=== PATIENT | female | born 2005 | race Caucasian/White ===

== ENCOUNTER 2024-07-12 02:52 | Emergency (ER) | payer OTHER, SELFPAY ==
[2024-07-12 03:05] VITALS: BP 137/92; PULSE 110; RESP 16; TEMP 36.6; O2SAT 100
[2024-07-12 03:27] LABS: Bilirubin Negative (Negative); Blood Moderate (Negative); Clarity Sl Cloudy (Clear); Glucose Negative (Negative); Ketones Negative (Negative); Leukocyte Esterase Small (Negative); Nitrite Positive (Negative); Specific Gravity >= 1.030 (1.005-1.025); Urobilinogen 0.2 mg/dL (Up to 0.2); pH 5.5 (5-8)
[2024-07-12 03:31] LABS: Bacteria Few HPF (Negative); C & S Indicated? No/Sq. Contamination; Casts Negative LPF (Negative); Crystals Negative HPF (Negative); Epithelial Cells Moderate HPF (Negative); Mucus Negative (Negative); WBC >50 HPF (0-5)
--- NOTE | 2024-07-12 03:37 | W.ED.GENAD ---
Discharge Plan Disposition Patient Disposition: Home Condition: Good Discharge Details Clinical Impression: Pyelonephritis Primary Care Provider: Unknown,Unknown ED Provider: Claribel Rodriguez Home Meds and New Rx's Prescriptions: New ciprofloxacin HCl 500 mg tablet 500 mg PO BID Qty: 13 0RF Discharge Instructions Instructions: Urinary Tract Infection, Adult ED Additional Instructions: Antibiotic twice a day for the next 7 days. Call your primary care doctor on Sunday to schedule an appointment for within the following 2 days to follow up on your visit here. Return to the emergency department for new or worsening symptoms including fever, new/different/worse pain, inability to keep down fluids, or if you have any other concerns. HPI General Mode of arrival: ambulatory. Date/Time Provider Initiated Documentation: 07/12/24 03:16. Limitations to Documentation: no limitations. Information obtained by: patient. HPI Narrative: 19yo previously healthy female presenting with abdominal pain and urinary frequency. Symptoms developed over the past two days. Pain is dull, suprapubic, and radiates to her right side. Some nausea today, one episode of scant mucousy emesis. Otherwise tolerating food and fluids well. Normal BM this morning. No dysuria, hematuria, or vaginal discharge. LMP about one week ago, does have unprotected intercourse. No fevers, chills, rash, chest pain, shortness of breath, bloody stool, or other concerns. Related Data Home Medications ?Medication ?Instructions ?Recorded ?Confirmed ciprofloxacin HCl 500 mg tablet 500 mg PO BID #13 tabs 07/12/24 Previous Rx's ?Medication ?Instructions ?Recorded ciprofloxacin HCl 500 mg tablet 500 mg PO BID #13 tabs 07/12/24 Allergies Allergy/AdvReac Type Severity Reaction Status Date / Time latex Allergy Unknown Verified 07/12/24 03:45 General Stated Complaint: Urinary FATUMA: 4 Review of Systems Narrative: see HPI Exam Narrative Exam Narrative: General: Alert, well appearing, well nourished, in no acute distress. Head: Normocephalic, atraumatic Neck: Trachea midline, ?Neck supple. ENT: ?MMM.? No oropharygeal lesions or exudate. Cardiac: ?RRR, no murmurs appreciated Resp: No respiratory distress. CTAB. Abd: ?Soft, non-distended, mild suprapubic and RLQ tenderness to palpation. : ?Mild suprapubic tenderness. No CVA tenderness. Extremities: ?No deformities.? No peripheral edema. Neurologic: GCS 15. ? Moves all extremities freely against gravity Course Vital Signs Vital signs: Vital Signs Temperature 36.6 C 07/12/24 03:05 Pulse 110 H 07/12/24 03:05 Respiratory Rate 16 07/12/24 03:05 Blood Pressure 137/92 H 07/12/24 03:05 Pulse Oximetry 100 07/12/24 03:05 Temperature 36.6 C 07/12/24 03:05 Temperature Source Temporal Artery Scan 07/12/24 03:05 Pulse 110 H 07/12/24 03:05 Respiratory Rate 16 07/12/24 03:05 Respiratory Effort Normal 07/12/24 03:11 Blood Pressure 137/92 H 07/12/24 03:05 Blood Pressure Position Sitting 07/12/24 03:05 Pulse Oximetry 100 07/12/24 03:05 Oxygen Delivery Method Room Air 07/12/24 03:05 Oxygen Flow Rate 0 07/12/24 03:05 Pain Level 9 07/12/24 03:11 Lab/Test Results Lab/Test Results: Laboratory Tests Range/Units 07/12/24 03:20 Urine Color (Yellow) Yellow Urine Clarity (Clear) Sl Cloudy Urine pH (5-8) 5.5 Ur Specific [employer] (1.005-1.025) >= 1.030 H Urine Protein (Neg-Trace) mg/dL 100 H Urine Ketones (Negative) mg/dL Negative Urine Blood (Negative) Moderate H Urine Nitrite (Negative) Positive H Urine Bilirubin (Negative) Negative Urine Urobilinogen (Up to 0.2) mg/dL 0.2 Ur Leukocyte Esterase (Negative) Small H Urine RBC (0-2) HPF 5-10 H Urine WBC (0-5) HPF >50 H Ur Epithelial Cells (Negative) HPF Moderate Urine Crystals (Negative) HPF Negative Urine Bacteria (Negative) HPF Few Urine Casts (Negative) LPF Negative Urine Mucus (Negative) Negative Ur Culture Indicated? No/Sq. Contamination Urine Glucose (Negative) mg/dL Negative POC- Test(urine) Negative Medical Decision Making 19yo previously healthy female presenting with lower abdominal pain and urinary frequency for the past two days, today with associated nausea and one episode of vomiting. . Tachycardiac on arrival to 110 after ambulating into triage, vital signs otherwise reassuring. Mild suprapubic and RLQ tenderness on exam with no rebound or guarding. Not overtly septic, would not treat empirically with abx/fluids. Given tylenol & ibuprofen for pain. -Initial UA contaminated, repeat sent and is consistent with UTI. -Labs reviewed as below, CBC reassuring with no leukocytosis or anemia, CMP with no actionable abnormalities. Amin score 3, unlikely appendicitis; would not pursue CT imaging at this time. Repeat HR in low 90's without further intervention. On reassessment patient reports pain improved, abdominal exam with minimal suprapubic tenderness and no RLQ tenderness. Not suggestive of ovarain cyst/torsion/tuboovarian abscess; discussed with patient and will not do pelvic exam or get US at this time. With generalized malaise and some vomiting, will treat as pyelonephritits with 7 day course of cipro. 1st dose given in the ED. PO challenged and tolerated well. Discharged home; discharge instructions and return precuations were reviewed with patient who verbalized understanding. All questions were answered and she is in full agreement with the plan. Lab Data Lab results reviewed: Yes I reviewed the patient's lab results. Labs: 07/12/24 04:00 Urine - Reflex from Ua Urine Culture - Pending Laboratory Tests Range/Units 07/12/24 07/12/24 07/12/24 03:20 03:53 04:00 WBC (4.4-10.8) 10^3/uL 10.32 RBC (3.93-5.22) 10^6/uL 5.08 Hgb (11.2-15.7) g/dL 12.6 Hct (36.0-46.0) % 39.4 MCV (80-95) fL 78 L MCH (27.0-33.0) pg 24.8 L MCHC (32.0-36.0) % 32.0 RDW (11.7-14.6) % 14.4 Plt Count (130-400) 10^3/uL 320 MPV (8.0-11.0) fL 9.6 Immature Gran % % 0.3 Neutrophils % % 70.2 Lymphocytes % % 16.9 Monocytes % % 11.6 Eosinophils % % 0.7 Basophils % % 0.3 Nucleated RBC % (0.0-0.3) % 0.0 Absolute Neutrophils (1.2-6.7) 10^3/uL 7.25 H Absolute Lymphocytes (1.2-3.4) 10^3/uL 1.74 Absolute Monocytes (0.1-0.8) 10^3/uL 1.20 H Absolute Eosinophils (0.0-0.7) 10^3/uL 0.07 Absolute Basophils (0.0-0.2) 10^3/uL 0.03 Sodium (136-145) mmol/L 142 Potassium (3.5-5.1) mmol/L 3.5 Chloride (98-107) mmol/L 103 Carbon Dioxide (21.0-32.0) mmol/L 30.6 Anion Gap (3-11) mmol/L 8.4 BUN (7-18) mg/dL 13 Creatinine (0.55-1.02) mg/dL 1.0 Est GFR (CKD-EPI 2020) (mL/min/1.73m2) 82.20 Glucose (74-106) mg/dL 116 H Calcium (8.5-10.1) mg/dL 9.2 Total Bilirubin (0.2-1.0) mg/dL 0.35 AST (15-37) U/L 12 L ALT (14-59) U/L 17 Alkaline Phosphatase (46-116) U/L 97 Total Protein (6.4-8.2) g/dL 7.9 Albumin (3.4-5.0) g/dL 4.2 Urine Color (Yellow) Yellow Yellow Urine Clarity (Clear) Sl Cloudy Clear Urine pH (5-8) 5.5 5.5 Ur Specific [employer] (1.005-1.025) >= 1.030 H 1.010 Urine Protein (Neg-Trace) mg/dL 100 H 30 H Urine Ketones (Negative) mg/dL Negative Negative Urine Blood (Negative) Moderate H Moderate H Urine Nitrite (Negative) Positive H Negative Urine Bilirubin (Negative) Negative Negative Urine Urobilinogen (Up to 0.2) mg/dL 0.2 0.2 Ur Leukocyte Esterase (Negative) Small H Small H Urine RBC (0-2) HPF 5-10 H 5-10 H Urine WBC (0-5) HPF >50 H 10-20 H Ur Epithelial Cells (Negative) HPF Moderate Rare Urine Crystals (Negative) HPF Negative Negative Urine Bacteria (Negative) HPF Few Few Urine Casts (Negative) LPF Negative Negative Urine Mucus (Negative) Negative Negative Ur Culture Indicated? No/Sq. Contamination Yes Urine Glucose (Negative) mg/dL Negative Negative Quality:SDOH Health Related Social Needs: No Data to Display PFSH All Active Problems (Updated 07/12/24 @ 04:53 by Claribel Rodriguez MD) Pyelonephritis (Acute) Social History Smoking/Tobacco Use Status: Current every day Tobacco Type: e-cigarettes Smoking risk assessment performed?: Yes Alcohol Intake: current Alcohol Intake frequency: a few times a week Alcohol type: beer, wine and hard liquor Drug use: Never PAWSS Have you Been Recently Intoxicated or Drunk Within the Last 30 days?: Yes Have you Ever Experienced Previous Episodes of Alcohol Withdrawal?: No Have you ever Experienced Withdrawal Seizures?: No Have you ever Experienced Delirium Tremens(DT)s?: No Have you ever undergone Alcohol Rehabilitation Treatment (i.e, inpt ot outpatient treatment programs)?: No Have you ever Experienced Blackouts?: No Have you ever Combined Alcohol with other Downers within the last 90 days?: No Have you ever Combined Alcohol with any other Substance of Abuse during the last 90 days?: No Positive Blood Alcohol level on Presentation? [PCS.BAL]: Unable to Obtain Evidence of Increased Autonomic Activity (i.e. HR>120, tremor, sweating, agitation, nausea)?: No Result: 1
[2024-07-12 03:45] VITALS: PULSE 98
[2024-07-12] MEDS: Acetaminophen 500 MG TAB 1000 MG PO (03:46)
[2024-07-12] MEDS: Ibuprofen 600 MG TAB PO (03:46)
[2024-07-12 03:58] LABS: Abs Immature Grans 0.03 10^3/uL (0.0-0.06); Absolute Basophil Count 0.03 10^3/uL (0.0-0.2); Absolute Eosinophil Count 0.07 10^3/uL (0.0-0.7); Absolute Lymphocyte Count 1.74 10^3/uL (1.2-3.4); Absolute Neutrophil Count 7.25 10^3/uL (1.2-6.7); Basophils % 0.3 %; Eosinophils % 0.7 %; HCT 39.4 % (36.0-46.0); HGB 12.6 g/dL (11.2-15.7); Immature Grans % 0.3 %; Lymphocytes % 16.9 %; MCH 24.8 pg (27.0-33.0); MCV 78 fL (80-95); MPV 9.6 fL (8.0-11.0); Monocytes % 11.6 %; Neutrophils % 70.2 %; Platelet Count 320 10^3/uL (130-400); RBC 5.08 10^6/uL (3.93-5.22); RDW 14.4 % (11.7-14.6); RDW-SD 40.1 fL; WBC 10.32 10^3/uL (4.4-10.8)
[2024-07-12 04:12] LABS: ALT 17 U/L (14-59); AST 12 U/L (15-37); Albumin 4.2 g/dL (3.4-5.0); Alkaline Phosphatase 97 U/L (46-116); Anion Gap 8.4 mmol/L (3-11); BUN 13 mg/dL (7-18); Bilirubin, Total 0.35 mg/dL (0.2-1.0); CO2 30.6 mmol/L (21.0-32.0); Calcium 9.2 mg/dL (8.5-10.1); Chloride 103 mmol/L (98-107); Glucose 116 mg/dL (74-106); Potassium 3.5 mmol/L (3.5-5.1); Sodium 142 mmol/L (136-145); Total Protein 7.9 g/dL (6.4-8.2)
[2024-07-12 04:38] LABS: Bilirubin Negative (Negative); Blood Moderate (Negative); Clarity Clear (Clear); Glucose Negative (Negative); Ketones Negative (Negative); Leukocyte Esterase Small (Negative); Nitrite Negative (Negative); Urobilinogen 0.2 mg/dL (Up to 0.2); pH 5.5 (5-8)
[2024-07-12 04:42] LABS: Bacteria Few HPF (Negative); C & S Indicated? Yes; Casts Negative LPF (Negative); Crystals Negative HPF (Negative); Epithelial Cells Rare HPF (Negative); Mucus Negative (Negative)
[2024-07-12] MEDS: Ciprofloxacin 500 MG TAB PO (05:00)
[2024-07-12 05:02] VITALS: BP 114/74; PULSE 98; RESP 16; TEMP 36.8; O2SAT 100
--- OUTSIDE RECORDS SUMMARY | 2024-07-12 05:16 | XMS_ITS | Encounter Summary ---
Author Organization [facility] Address [address] [place] [address] Care Team Providers Care Photography Instructor Name Role Phone Pcp, No Unavailable Unavailable Encounter Details Date Type Department Care Team (Late st Contact Info) Description 12/11/2023 5:56 PM EDT - 12/11/2023 6:02 PM EDT Emergency [facility] Emergency Department [address] [place] [id number] Discharge Disposition: Home or Self Care Social History Tobacco Use Types Packs/Day Years Used Date Smoking Tobacco: Never Assessed Comments Unknown Sex and Gender Information Value Date Recorded Sex Assigned at Not on file Legal Sex Female 5:53 PM EDT Gender Identity Not on file Sexual Orientation Not on file documented as of this encounter Last Filed Vital Signs Vital Sign Reading Time Taken Comments Blood Pressure - - Pulse - - Temperature - - Respiratory Rate 16 12/11/2023 6:01 PM EDT Oxygen Saturation 99% 12/11/2023 6:01 PM EDT Inhaled Oxygen Concentration 99% 12/11/2023 6 :01 PM EDT Weight - - Height - - Body Mass Index - - documented in this encounter ED Notes * Mara Nielsen RN - 12/11/2023 6:00 PM EDT Pt to ED for suture removal. Pt wound is closed and free of signs of infection. Tech removed 4 sutures. documented in this encounter Plan of Treatment Not on file documented as of this encounter Visit Diagnoses Not on filedocumented in this encounter Care Teams Photography Instructor Relationship Specialty Start Date End Date Pcp, No PCP - Generic [facility] PCP 12/03/23 documented as of this encounter
--- OUTSIDE RECORDS SUMMARY | 2024-07-12 05:16 | XMS_ITS | Encounter Summary ---
Author Organization [facility] Address [address] [place] [id number] Care Team Providers Care Dub Room Engineer Name Role Phone Pcp, No Unavailable Unavailable Reason for Visit * Reason Comments Dog Bite Encounter Details Date Type Department Care Team ([facility] st Contact Info) Description 12/03/2023 7:42 PM EDT - 12/03/2023 8:14 PM EDT Emergency [facility] Emergency Department [address] [place] [phone] Evangelist Moses MD [address] [place] [address] [place] [address] Discharge Disposition: Home or Self Care Social [...] Sign Reading Time Taken Comments Blood Pressure 103/86 12/03/2023 6:40 PM EDT Pulse 116 12/03/2023 6:40 PM EDT Temperature 36.4 ??C (97.5 ??F) 12/03/2023 6:40 PM ED T Respiratory Rate 18 12/03/2023 6:40 PM EDT Oxygen Saturation 100% 12/03/2023 6:40 PM EDT Inhaled Oxygen Concentration 100% 12/03/2023 6 :40 PM EDT Weight - - Height - - Body Mass Index - - documented in this encounter Discharge Instructions * Discharge Instructions* Evangelist Moses MD - 12/03/2023 8:09 PM EDT Return to walk-in clinic or emergency department for suture removal 1 week after placement. Return to the nearest emergency department immediately for new or worsening symptoms such as fevers or increasing redness. Continue antibiotics as previously prescribed (amoxicillin-clavulanate). * Attachments The following attachments cannot be sent through Care Everywhere. * Tdap Vaccine: VIS (Georgian) documented in this encounter ED Notes * Ruthie Saul RN - 12/03/2023 8:13 PM EDT Discharge instructions reviewed, patient denies any questions * Evangelist Moses MD - 12/03/2023 8:10 PM EDT History Chief Complaint Patient presents with Dog Bite Chief Complaint: Need for tetanus booster I saw this patient primarily. I have seen and examined the patient myself and am responsible for the care plan. The history is provided by the patient. This is a 18 y.o. female who presents with need for tetanus update after dog bite to right forearm.Patient states that she was bitten by a bull mastiff 2 days ago on right forearm. Dog belongs to her friend and dogs vaccinations are up-to-date including rabies series. Patient had sutures placed and started on Augmentin. She denies complaints and is feeling well.. No past medical history on file. No past surgical history on file. No family history on file. Review of Systems Constitutional: Negative for chills and fever. Skin: Positive for wound. Negative for color change and rash. Hematological: Negative for adenopathy. Does not bruise/bleed easily. Physical Exam Triage Vitals [12/03/23 1840] Temperature Heart Rate BP Respirations SpO2 36.4 ??C (97.5 ??F) (!) 116 103/86 18 100 % Oximeter Pulse -- Physical Exam Vitals and nursing note reviewed. Constitutional: General: She is not in acute distress. Appearance: She is well-developed. She is not diaphoretic. HENT: Head: Normocephalic and atraumatic. Eyes: Pupils: Pupils are equal, round, and reactive to light. Neck: Trachea: No tracheal deviation. Pulmonary: Effort: Pulmonary effort is normal. No respiratory distress. Musculoskeletal: Cervical back: Normal range of motion and neck supple. Skin: General: Skin is warm and dry. Coloration: Skin is not pale. Findings: No rash. Comments: Right forearm with sutured laceration, approximately 2 cm in length. 3 sutures are intact. There is no surrounding erythema and seems to be healing appropriately. Neurological: Mental Status: She is alert and oriented to person, place, and time. Psychiatric: Behavior: Behavior normal. Thought Content: Thought content normal. Judgment: Judgment normal. Procedures Procedures completed include: None Pertinent Diagnostic study results include: None indicated MDM (ED Course and Disposition) ASSESSMENT and PLAN This is a 18 y.o. female who presents with wound to right forearm from dog bite and need for updated tetanus. Patient does not need rabies series as dog's vaccinations are up-to-date. She is currently on Augmentin prescribed by walk-in clinic. Tdap given, all questions answered to the best of my ability. She will need suture removal here or in the walk-in clinic. Encounter Diagnoses Name Primary? Dog bite of right forearm, initial encounter Need for Tdap vaccination Yes MDM: MDM Section: Refer to note content and Assessment/Plan Additional History Source: The patient ED CRITICAL CARE: Critical Care: No Evangelist Moses MD 12/03/232013 * Ruthie Saul RN - 12/03/2023 8:09 PM EDT Clean dressing applied * Tarik Willams RN - 12/03/2023 6:38 PM EDT Pt arrives ambulatory c/o dog bite Sunday, pt sent from [facility] for a tetanus shot. Dog was UTD on vaccinations. documented in this encounter Plan of Treatment Not on file documented as of this encounter Visit Diagnoses Diagnosis Need for Tdap vaccination- Primary Need for prophylactic vaccination with combined yaagjeqzsq-hwblifg-xibewpxts (DTP) vaccine Dog bite of right forearm, initial encounter documented in this encounter Care Teams Dub Room Engineer Relationship Specialty Start Date End Date Pcp, No PCP - Generic [facility] PCP 12/03/23 documented as of this encounter
--- OUTSIDE RECORDS SUMMARY | 2024-07-12 05:16 | XMS_ITS | Encounter Summary ---
Author Organization [facility] Address [address] [place] [id number] Care Team Providers Care Glass Smoother Name Role Phone Pcp, No Unavailable Unavailable Encounter Details Date Type Department Care Team (Late st Contact Info) Description 03/05/2024 Lab Requisition [facility] [place] [id number] [place] [phone] Sujatha Dillon, MONEY POSITION OFFICER [address] [place], [place] [id number] Social History Tobacco Use Types Packs/Day Years Used Date Smoking Tobacco: Never Assessed Comments Unknown Sex and Gender Information Value Date Recorded Sex Assigned at Not on file Legal Sex Female 5:53 PM EDT Gender Identity Not on file Sexual Orientation Not on file documented as of this encounter Plan of Treatment Not on file documented as of this encounter Procedures Procedure Name Priority Date/Time Associated Diagnosis Comments CBC W/O DIFFERENTIAL Routine 03/05/2024 10:52 AM EDT Encounter for general adult medical examination without abnormal findings HEMOGLOBIN A1C Routine 03/05/2024 10:52 AM EDT Encounter for general adult medical examination without abnormal findings LIPID PANEL Routine 03/05/2024 10:52 AM EDT Encounter for general adult medical examination without abnormal findings TSH Routine 03/05/2024 10:51 AM EDT Encounter for general adult medical examination without abnormal findings COMPREHENSIVE METABOLIC PANEL Routine 03/05/2024 10:51 AM EDT Encounter for general adult medical examination without abnormal findings documented in this encounter Results * (ABNORMAL) LIPID PANEL (03/05/2024 10:52 AM EDT) Cholesterol 182 See comment mg/dL 03/05/2024 6:52 PM EDT [facility] Comment: Fasting and Non-Fasting Desirable: <200 mg/dL Borderline high: 200-239 mg/dL High: > or = 240 mg/dL Triglycerides 56 See comment mg/dL 03/05/2024 6:52 PM EDT [facility] Comment: Flagging of Abnormals is based on fasting value Fasting Normal: <150 mg/dL Borderline high: 150-199 mg/dL High: 200-499 mg/dL Very high: > or = 500 mg/dL Non-Fasting Males: <200 mg/dL Females: <175 mg/dL HDL Cholesterol 68 See comment mg/dL 03/05/2024 6:52 PM EDT [facility] Comment: Fasting and Non-Fasting Males: > or = 40 mg/dL Females: > or = 50 mg/dL LDL Cholesterol Calculation 103(H) 0 - 99 mg/dL 03/05/2024 6:52 PM EDT [facility] Non HDL Cholesterol Calculation 114.0 See comment mg/dL 03/05/2024 6:52 PM EDT [facility] Comment: Fasting and Non-Fasting Desirable: <130 mg/dL Above desirable: 130-159 mg/dL Borderline high: 160-189 mg/dL High: 190-219 mg/dL Very high: > or = 220 mg/dL Blood VENOUS STRUCTURE / Unknown 03/05/2024 10:52 AM EDT 03/05/2024 4:25 PM EDT Narrative [facility] - 03/05/2024 6:52 PM EDT The National Lipid Association and the National Cholesterol Education Program (NCEP) have set the above guidelines for lipids (total cholesterol, triglycerides, HDL cholesterol, LDL cholesterol, and non HDL cholesterol) in adults ages 18 and up. us Sujatha Dillon NP CHEMISTRY ORDERABLES Final Resul t [facility] [address] [place] [address] * (ABNORMAL) CBC W/O DIFFERENTIAL (03/05/2024 10:52 AM EDT) Leukocytes 9.4 3.7 - 12.7 thou/uL 03/05/2024 6:03 PM EDT [facility] Erythrocytes 5.47(H) 3.69 - 5.28 mil/uL 03/05/2024 6:03 PM EDT [facility] Hemoglobin 13.4 10.5 - 14.8 g/dL 03/05/2024 6:03 PM EDT [facility] Hematocrit 43.5 31.8 - 44.3 % 03/05/2024 6:03 PM EDT [facility] Mean Corpuscular Volume 79.5 73.3 - 96.9 fL 03/05/2024 6:03 PM EDT [facility] Mean Corpuscular Hemoglobin 24.5 21.9 - 32.6 pg 03/05/2024 6:03 PM EDT [facility] Mean Corpuscular Hemoglobin Conc 30.8 29.7 - 34.9 g/dL 03/05/2024 6:03 PM EDT [facility] Platelet Count 379 158 - 429 thou/uL 03/05/2024 6:03 PM EDT [facility] Mean Platelet Volume 10.8 9.1 - 12.9 fL 03/05/2024 6:03 PM EDT [facility] Erythrocyte Distribution Width SD 40.8 37.0 - 48.0 fL 03/05/2024 6:03 PM EDT [facility] Erythrocyte Distribution Width CV 14.1 11.5 - 17.6 % 03/05/2024 6:03 PM EDT [facility] Blood VENOUS STRUCTURE / Unknown 03/05/2024 10:52 AM EDT 03/05/2024 4:25 PM EDT us Sujatha Dillon NP HEMATOLOGY ORDERABLES Final Resu lt [place] [id number] [place] [id number] * HEMOGLOBIN A1C (03/05/2024 10:52 AM EDT) Hemoglobin A1C 5.3 4.2 - 5.6 % 03/06/2024 5:27 AM EDT [facility] Average Plasma Glucose 105 82 - 117 mg/dL 03/06/2024 5:27 AM EDT [facility] Blood VENOUS STRUCTURE / Unknown 03/05/2024 10:52 AM EDT 03/05/2024 4:25 PM EDT Narrative [facility] - 03/06/2024 5:27 AM EDT <18 years: Hemoglobin A1c criteria for diagnosing diabetes have not been established for patients who are <18 years of age. > or =18 years: Increased risk for diabetes (prediabetes):??5.7-6.4% Diabetes:??> or =6.5% Falsely low percent A1c may be seen with abnormal hemoglobin variants or shortened erythrocyte survival (such as hemolysis, blood loss and ). us Sujatha Dillon MONEY POSITION OFFICER CHEMISTRY ORDERABLES Final Resul t Performing Organization Address City/[facility] Co de Phone Number [address] [address] * TSH (03/05/2024 10:51 AM EDT) Pathologist [facility] TSH 2.200 0.270 - 4.200 uIU/mL 03/05/2024 6:42 PM EDT [facility] Blood VENOUS STRUCTURE / Unknown 03/05/2024 10:51 AM EDT 03/05/2024 4:25 PM EDT Sujatha Dillon MONEY POSITION OFFICER CHEMISTRY ORDERABLES Final Resul t Performing Organization Address [facility] Co de Phone Number [place] [id number] [place] [id number] * (ABNORMAL) COMPREHENSIVE METABOLIC PANEL (03/05/2024 10:51 AM EDT) Sodium 142 135 - 145 mEq/L 03/05/2024 6:42 PM EDT [facility] Potassium 4.8 3.5 - 5.1 mEq/L 03/05/2024 6:42 PM EDT [facility] Chloride 103 96 - 108 mEq/L 03/05/2024 6:42 PM EDT [facility] Carbon Dioxide 26 21 - 30 mEq/L 03/05/2024 6:42 PM EDT [facility] Anion Gap 13 7 - 16 mEq/L 03/05/2024 6:42 PM EDT [facility] Blood Urea Nitrogen 15 6 - 20 mg/dL 03/05/2024 6:42 PM EDT [facility] Creatinine 0.88 0.59 - 1.04 mg/dL 03/05/2024 6:42 PM EDT [facility] BUN Creatinine Ratio 17.0 03/05/2024 6:42 PM EDT [facility] Glucose 106(H) 70 - 99 mg/dL 03/05/2024 6:42 PM EDT [facility] Comment:Per ADA guidelines t hese ranges are for fasting glucose only Protein 7.8 6.4 - 8.3 g/dL 03/05/2024 6:42 PM EDT [facility] Albumin 5.0 3.5 - 5.1 g/dL 03/05/2024 6:42 PM EDT [facility] Globulin 2.8 2.0 - 3.5 g/dL 03/05/2024 6:42 PM EDT [facility] Albumin/Globulin Ratio 1.8 03/05/2024 6:42 PM EDT [facility] Bilirubin 0.6 <=1.2 mg/dL 03/05/2024 6:42 PM EDT [facility] Calcium 10.3(H) 8.6 - 10.0 mg/dL 03/05/2024 6:42 PM EDT [facility] Alkaline Phosphatase 106(H) 35 - 104 U/L 03/05/2024 6:42 PM EDT [facility] AST 13 8 - 43 U/L 03/05/2024 6:42 PM EDT [facility] ALT 8 7 - 45 U/L 03/05/2024 6:42 PM EDT [facility] EGFR (MDRD) >60 >60.0 mL/min/1. 73m(2) 03/05/2024 6:42 PM EDT [facility] Comment:This test has multip le limitations. Please see [email or web address]. Blood VENOUS STRUCTURE / Unknown 03/05/2024 10:51 AM EDT 03/05/2024 4:25 PM EDT us Sujatha Dillon NP CHEMISTRY ORDERABLES Final Resul t [facility] [address] [place] [address] documented in this encounter Visit Diagnoses Diagnosis Encounter for general adult medical examination without abnormal findings Routine general medical examination at a health care facility documented in this encounter Care Teams Glass Smoother Relationship Specialty Start Date End Date Pcp, No PCP - Generic [facility] PCP 12/03/23 documented as of this encounter
--- OUTSIDE RECORDS SUMMARY | 2024-07-12 05:16 | XMS_ITS | Continuity of Care Document ---
Author Organization [facility] Address [address] [place] [address] Phone Care Team Providers Care Application Design Engineer Name Role Phone Pravin CALIN Karli Unavailable Unavailable Allergies, Adverse Reactions, Alerts Substance Reaction Status Criticality No Known Allergies Active No Inform ation Medications Medication Instructions Dosage Effective Dates (start - stop) Status Comments triamcinolone acetonide 0.025 % topical ointment apply by topical route 2 times every day a thin layer to the affected area(s) 0.00 - Active Mirena 21 mcg/24 hr (up to 8 years) 52 mg intrauterine device - Active Procedures Procedure Date Psychotherapy (45-50 Minutes) Psychotherapy (20-30 Minutes) Psychotherapy (20-30 Minutes) 4 Psychotherapy (20-30 Minutes) Office/outpatient visit, est, detailed O New Patient In Take Visit Comprehensive Oral Evaluation - New Or E stabl Pt Intraoral - Complete Series (including B itewings) Caries Risk Assessment, High Risk Sealant Exclusion Psychotherapy (20-30 Minutes) Psychotherapy (20-30 Minutes) Psychotherapy (20-30 Minutes) 4 Psychotherapy (20-30 Minutes) DRUG/ALCOHOL SCREEN NEGATIVE Office/outpatient visit, est, exp prob S Psychotherapy (20-30 Minutes) 4 Psychotherapy (20-30 Minutes) 4 Psychotherapy (20-30 Minutes) 4 Office/outpatient visit, est, detailed A Psychotherapy (20-30 Minutes) 4 Psychotherapy (20-30 Minutes) 4 Psychiatric Diagnostic Evaulation Collect venous blood, venipuncture Specimen handling/transport, office to ab Preventive checkup, est, 18-39 yrs Office/outpatient visit, new, detailed J Advance Directives Directive Yes / No Effective Date File Name No Information Encounters Encounter Description Practice Location Reason(s) For Visit Diagnoses Date Provider Providers Copied on Encounter Psychotherapy (45-50 Minutes) [facility], [address] [place] [address], [id number] , tel: [phone] [facility] Bipolar affective disorder, current episode mixed, current episode severity unspecifiedGAD (generalized anxiety disorder) 4 Pravin Calvillo. [address] [place] [address], [id number], . tel:[phone] Psychotherapy (20-30 Minutes) [facility], [address] [place] [address], [id number] , [place] tel: [phone] [facility] Bipolar affective disorder, current episode mixed, current episode severity unspecifiedGAD (generalized anxiety disorder) 4 Pravin Calvillo. [address] [place] [address], [id number], [place]. tel:[phone] Psychotherapy (20-30 Minutes) [facility], [address] [place] [address], [id number] , [place] tel: [phone] [facility] Bipolar affective disorder, current episode mixed, current episode severity unspecifiedGAD (generalized anxiety disorder) 4 Pravin Calvillo. [address] [place] [address], [address], [place]. tel:[phone] Psychotherapy (20-30 Minutes) [facility], [address] [place] [address], [id number] , [place] tel: [phone] [facility] Bipolar affective disorder, current episode mixed, current episode severity unspecifiedGAD (generalized anxiety disorder) 4 Pravin Calvillo. [address] [place] [address], [address], [place]. tel:[phone] Office/outpati ent visit, est, detailed [facility], [address] [place] [address], [id number] , [place] tel: [phone] [facility] MAGDALENA (generalized anxiety disorder)Bipolar affective disorder, current episode mixed, current episode severity unspecified 4 Eleno Aguilera. [address] [place] [address], [address], [place]. tel:[phone] [facility], [address] [place] [address], [id number] , [place] tel: [phone] [facility] EVAL (chief complaint) No Information 4 UDS Nurse. [address] [place] [address], [address], [place]. tel:[phone] [facility], [address] [place] [address], [id number] , [place] tel: [phone] [facility] Encounter for dental exam and cleaning w abnormal findingsEncounter for dental exam and cleaning w/o abnormal findingsRisk for dental caries, highDental sealant status 4 Taylor Mcgee. [address] [place], [address], [place]. tel:[phone] Psychotherapy (20-30 Minutes) [facility], [address] [place] [address], [id number] , [place] tel: [phone] [facility] Bipolar affective disorder, remission status unspecifiedGAD (generalized anxiety disorder) Sep- 4 Pravin Calvillo. [address] [place] [address], [address], [place]. tel:[phone] Psychotherapy (20-30 Minutes) [facility], [address] [place] [address], [id number] , [place] tel: [phone] [facility] Bipolar affective disorder, remission status unspecifiedGAD (generalized anxiety disorder) Sep- 4 Pravin Calvillo. [address] [place], [address], [place]. tel:[phone] Psychotherapy (20-30 Minutes) [facility], [address] [place] [address], [id number] , [place] tel: [phone] [facility] Bipolar affective disorder, remission status unspecifiedGAD (generalized anxiety disorder) 4 Pravin Calvillo. [address] [place] [address], [address], [place]. tel:[phone] Psychotherapy (20-30 Minutes) [facility], [address] [place] [address], [id number] , [place] tel: [phone] [facility] Bipolar affective disorder, remission status unspecifiedGAD (generalized anxiety disorder) 4 Pravin Calvillo. [address] [place] [address], [address], [place]. tel:[phone] Office/outpati ent visit, est, exp prob [facility], [address] [place] [address], [id number] , [place] tel: [phone] [facility] depression (chief complaint) Bipolar affective disorder, remission status unspecifiedDermat itis of eyelid of right eye, unspecified type 4 Santana Solares. [address] [place] [address], [address], [place]. tel:[phone] Psychotherapy (20-30 Minutes) [facility], [address] [place] [address], [id number] , [place] tel: [phone] [facility] Bipolar affective disorder, remission status unspecifiedGAD (generalized anxiety disorder) 4 Pravin Calvillo. [address] [place], [address], [place]. tel:[phone] Psychotherapy (20-30 Minutes) [facility], [address] [place] [address], [id number] , [place] tel: [phone] [facility] Bipolar affective disorder, remission status unspecifiedGAD (generalized anxiety disorder) 4 Pravin Calvillo. [address] [place] [address], [address], [place]. tel:[phone] Psychotherapy (20-30 Minutes) [facility], [address] [place] [address], [id number] , [place] tel: [phone] [facility] Bipolar affective disorder, remission status unspecifiedGAD (generalized anxiety disorder) 4 Pravin Calvillo. [address] [place] [address], [address], [place]. tel:[phone] [facility], [address] [place] [address], [id number] , [place] tel: [phone] [facility] No Information 4 Santana Solares. [address] [place] [address], [address], [place]. tel:[phone] Office/outpati ent visit, est, detailed [facility], [address] [place] [address], [id number] , [place] tel: [phone] [facility] depression (chief complaint) Anxiety and depressionSprain of right ankle, unspecified ligament, sequelaDermatitis of eyelid of right eye, unspecified type 4 Santana Solares. [address] [place] [address], [address], [place]. tel:[phone] Psychotherapy (20-30 Minutes) [facility], [address] [place] [address], [id number] , [place] tel: [phone] [facility] Bipolar affective disorder, remission status unspecifiedGAD (generalized anxiety disorder) 4 Pravin Calvillo. [address] [place] [address], [address], [place]. tel:[phone] Psychotherapy (20-30 Minutes) [facility], [address] [place] [address], [id number] , [place] tel: [phone] [facility] Bipolar affective disorder, remission status unspecifiedGAD (generalized anxiety disorder) 4 Pravin Calvillo. [address] [place] [address], [address], [place]. tel:[phone] Psychiatric Diagnostic Evaulation [facility], [address] [place] [address], [id number] , [place] tel: [phone] [facility] Bipolar affective disorder, remission status unspecifiedGAD (generalized anxiety disorder) 4 Pravin Calvillo. [address] [place], [address], [place]. tel:[phone] Preventive checkup, est, 18-39 yrs [facility], [address] [place] [address], [id number] , [place] tel: [phone] [facility] preventive exam (chief complaint) Encounter for general adult medical examination without abnormal findingsWomen's annual routine gynecological examinationSuperf icial acne vulgarisBipolar affective disorder, remission status unspecifiedAt risk for dental cariesVision changes 4 Santana Solares. [address] [place], [address], [place]. tel:[phone] Office/outpati ent visit, new, detailed [facility], [address] [place] [address], [id number] , [place] tel: [phone] [facility] New Patient Exam (chief complaint)a nnual tobacco cessation (chief complaint) Anxiety and depressionAttenti on deficit hyperactivity disorder (ADHD), unspecified ADHD typeBipolar affective disorder, remission status unspecified 4 Santana Solares. [address] [place], [address], [place]. tel:[phone] Family History Family Member Type Diagnosis Age At Onset Brother Problem (finding) Mental Illness Mother Problem (finding) Mental Illness Grandfather Problem (finding) Migraines Mother Problem (finding) Alcoholism Grandfather Problem (finding) Mental Illness Grandmother Problem (finding) Migraines Brother Problem (finding) Anxiety Grandmother Problem (finding) Depression Grandmother Problem (finding) Hypertension Father Problem (finding) Mental Illness Grandmother Problem (finding) Mental Illness Grandfather Problem (finding) Cardiovascular Disease Grandfather Problem (finding) Hearing Deficiency Grandmother Problem (finding) Anxiety Maternal grandfather Problem Bipolar I disorder Grandfather Problem (finding) Stroke Grandmother Problem (finding) Asthma Mother Problem (finding) Depression Brother Problem (finding) Depression Grandfather Problem (finding) Hypertension Mother Problem (finding) Obesity Grandmother Problem (finding) Cancer Mother Problem Bipolar I disorder Sister Problem (finding) Mental Illness Grandfather Problem (finding) Coronary Artery Disease Paternal grandfather Problem Coronary artery dise ase Sister Problem (finding) Anxiety Mother Problem (finding) Anxiety Mother Problem (finding) Asthma Grandmother Problem (finding) Obesity Grandfather Problem (finding) Diabetes Mother Problem (finding) Hypertension Sister Problem (finding) Depression Mother Problem (finding) Thyroid Disorder Father Problem (finding) Alcoholism Grandmother Problem (finding) Osteoporosis Grandmother Problem (finding) Hearing Deficiency Mother Problem (finding) Hearing Deficiency Payers Payer name Insurance type Covered republican ID Marialuisa sanchez(s) [employer] [id number] Social History Type Description Quantity Date Captured Comments Alcohol Use Details Unknown Caffeine Use Details Unknown Tobacco Use Status Smoking Status No Information Sex Female Sexual Orientation Straight or heterosexual December Gender Identity Female Chief Complaint And Reason For Visit No Information Reason For Referral Reason For Referral No Information Plan Of Treatment Date Type Action Status Goal BMI Counseling. Due on due Goal HIV Screen. Due on due Goal SBIRT. Due on du e Goal Lipid panel. Due on due Goal PAP. Due on due Goal Depression screening. Due on due Goal Hepatitis C screening. Due o n due Goal PRAPARE???. Due on due Goal BMI Counseling. Due on due Goal SBIRT. Due on du e Goal Lipid panel. Due on due Goal PRAPARE???. Due on due Goal PAP. Due on due Goal HIV Screen. Due on due Goal Hepatitis C screening. Due o n due Goal Depression screening. Due on due Goal SBIRT. Due on du e Goal Hepatitis C screening. Due o n due Goal PAP. Due on due Goal PRAPARE???. Due on due Goal Lipid panel. Due on due Goal Depression screening. Due on due Goal HIV Screen. Due on due Goal BMI Counseling. Due on due Goal HIV Screen. Due on due Goal PAP. Due on due Goal Lipid panel. Due on due Goal SBIRT. Due on du e Goal Hepatitis C screening. Due o n due Goal Depression screening. Due on due Goal PRAPARE???. Due on due Goal BMI Counseling. Due on due Goal BMI Counseling. Due on due Goal SBIRT. Due on du e Goal HIV Screen. Due on due Goal PRAPARE???. Due on due Goal Lipid panel. Due on due Goal PAP. Due on due Goal Hepatitis C screening. Due o n due Goal Depression screening. Due on due Goal BMI Counseling. Due on due Goal HIV Screen. Due on due Goal PAP. Due on due Goal PRAPARE???. Due on due Goal SBIRT. Due on du e Goal Hepatitis C screening. Due o n due Goal Depression screening. Due on due Goal Lipid panel. Due on due Goal HIV Screen. Due on due Goal BMI Counseling. Due on due Goal Depression screening. Due on due Goal PAP. Due on due Goal Lipid panel. Due on due Goal SBIRT. Due on du e Goal PRAPARE???. Due on due Goal Hepatitis C screening. Due o n due Goal PAP. Due on due Goal PRAPARE???. Due on due Goal SBIRT. Due on du e Goal HIV Screen. Due on due Goal BMI Counseling. Due on due Goal Depression screening. Due on due Goal Hepatitis C screening. Due o n due Goal Lipid panel. Due on due Goal PAP. Due on due Goal Lipid panel. Due on due Goal Hepatitis C screening. Due o n due Goal HIV Screen. Due on due Goal BMI Counseling. Due on due Goal PRAPARE???. Due on due Goal SBIRT. Due on du e Goal Depression screening. Due on due Goal SBIRT. Due on du e Goal Depression screening. Due on due Goal Hepatitis C screening. Due o n due Goal BMI Counseling. Due on due Goal Fluoride varnish application. Due on due Goal Lipid panel. Due on due Goal Oral Risk Assessment. Due on due Goal HIV Screen. Due on due Goal PRAPARE???. Due on due Goal HIV Screen. Due on due Goal Lipid panel. Due on due Goal Oral Risk Assessment. Due on due Goal Depression screening. Due on due Goal PRAPARE???. Due on due Goal SBIRT. Due on du e Goal Hepatitis C screening. Due o n due Goal Fluoride varnish application. Due on due Goal Oral Risk Assessment. Due on due Goal Depression screening. Due on due Goal Hepatitis C screening. Due o n due Goal Fluoride varnish application. Due on due Goal Lipid panel. Due on due Goal SBIRT. Due on du e Goal PRAPARE???. Due on due Goal HIV Screen. Due on due Goal Depression screening. Due on due Goal Hepatitis C screening. Due o n due Goal Lipid panel. Due on due Goal PRAPARE???. Due on due Goal Oral Risk Assessment. Due on due Goal SBIRT. Due on du e Goal Fluoride varnish application. Due on due Goal HIV Screen. Due on due Goal Oral Risk Assessment. Due on due Goal Lipid panel. Due on due Goal Hepatitis C screening. Due o n due Goal PRAPARE???. Due on due Goal SBIRT. Due on du e Goal Fluoride varnish application. Due on due Goal HIV Screen. Due on due Goal Depression screening. Due on due Goal Hepatitis C screening. Due o n due Goal Oral Risk Assessment. Due on due Goal Fluoride varnish application. Due on due Goal SBIRT. Due on du e Goal Lipid panel. Due on due Goal Depression screening. Due on due Goal HIV Screen. Due on due Goal PRAPARE???. Due on due Goal SBIRT. Due on du e Goal Fluoride varnish application. Due on due Goal Oral Risk Assessment. Due on due Goal Lipid panel. Due on due Goal PRAPARE???. Due on due Goal HIV Screen. Due on due Goal Depression screening. Due on due Goal HIV Screen. Due on due Goal SBIRT. Due on du e Goal Fluoride varnish application. Due on due Goal Depression screening. Due on due Goal Oral Risk Assessment. Due on due Goal PRAPARE???. Due on due Goal Lipid panel. Due on due Goal HIV Screen. Due on due Goal Depression screening. Due on due Goal Fluoride varnish application. Due on due Goal Oral Risk Assessment. Due on due Goal Lipid panel. Due on due Goal PRAPARE???. Due on due Goal SBIRT. Due on du e Goal Oral Risk Assessment. Due on due Goal HIV Screen. Due on due Goal Lipid panel. Due on due Goal PRAPARE???. Due on due Goal Fluoride varnish application. Due on due Goal SBIRT. Due on du e Goal Depression screening. Due on due Goal Oral Risk Assessment. Due on due Goal PRAPARE???. Due on due Goal Fluoride varnish application. Due on due Goal Lipid panel. Due on due Goal Depression screening. Due on due Goal SBIRT. Due on du e Goal HIV Screen. Due on due Goal HIV Screen. Due on due Goal Oral Risk Assessment. Due on due Goal PRAPARE???. Due on due Goal Fluoride varnish application. Due on due Goal SBIRT. Due on du e Goal Depression screening. Due on due Goal Lipid panel. Due on due Goal HIV Screen. Due on 24 due Goal Oral Risk Assessment. Due on due Goal PRAPARE???. Due on 25 due Goal Fluoride varnish application. Due on due Goal SBIRT. Due on du e Goal Depression screening. Due on due Referral Ordered: Referrals: Gynecology. Evaluate and treat ordered Referral Ordered: Referrals: [facility]. Evaluate and treat Appointment date/timeframe: 05/27/2024 ordered Referral Ordered: Referrals: Dermatology. Evaluate and treat ordered Referral Ordered: Referrals: [facility] Dental. Evaluate and treat ordered Referral Ordered: Referrals: Ophthalmology. Evaluate and treat ordered Referral Ordered: Referrals: [facility] Behavioral Health. Evaluate and treat ordered Appointment Sol Moses BOOKED Appointment Sol Moses BOOKED Appointment Sol Moses BOOKED Appointment Sol Moses BOOKED Future Order: Lab Order CORTISOL (DOLORES), Collected on: , Sent on: Sent History Of Present Illness Encounter Date Complaint History Of Prese nt Illness LEAH Patient presents today for initial med mgmt appointment with provider for consideration of medication management. Concerns: concerns are anxiety and bipolar. social anxiety, generalized anxiety is present first thing in the morning. waves of sadness- Record release obtained at today's visit for previous records.Controlled substance contract signed at today's visit.Toxicology collected today.PHQ9 and GAD7 given to patient for completion at today's visit.Patient Housing and family status: she lives with her Grandmother and her dadPatient's current employment status: unemployed Patients sees Counselor: yes Patient reports the following stressors: money, living situation Reports of difficulty falling asleep/staying asleep?. both are issues does take her hours to fall asleep. still waking during the night once she falls asleep. sometimes nightmares. depression Additional infor becca: stopped taking lexapro 04/18/24 feeling manic. depression preventive exam New Patient Exam annual tobacco cessation Patient due for their annual tobacco cessation screening. Patient was screened at today's visit for their current tobacco usage Comments: Oj t here to estab care at clinic today, last saw PCP 2-3 years ago. Functional Status Date Functional Assessmen t No Information Instructions Date Instruction Additional Delma hudson Follow up 4 weeks.Ca ll with any questions or concerns. Related to Bipolar affective disorder, current episode mixed, current episode severity unspecified Assessments Type Assessment Date assessment Bipolar affective di sorder, current episode mixed, current episode severity unspecified impression Sol is here today to establish with a medication management provider. She reports a past diagnosis of bipolar 1 at age 14 by a psychiatrist in [place]. She describes symptoms consistent with tiffanie alternating with depression. She reports previous treatment includes Sertraline and hydroxyzine which she felt made her symptoms worse. She reports being prescribed abilify at one time but states she never took the medication due to fear of side effects. She reports her mother is diagnosed with Bipolar I disorder.[id number] thoughts present but denies plan or intent.Sol dropped out of school in the 10th grade due to her symptoms and states she is currently working on obtaining her GED and would like to pursue [employer] and esthetics. She has not worked for the past 3 years due to her mental health symptoms and resides with her father and her paternal grandmother.We discussed medications used to treat bipolar disorder with the goal of stabilizing mood and preventing tiffanie. Specifically discussed lithium. She is not currently using control and I reviewed my recommendations for use of control while taking [place]. She expressed hesitancy in starting a medication and desire to be certain of a correct diagnosis prior to starting. Reviewed criteria for bipolar disorders, depression and anxiety. I recommended trialing a mood stabilizing medication and recommended against SSRI medication without a mood stabilizer due to the risk of tiffanie. She would like have time to think about what was discussed at today's visit before starting any medication. A 4 week follow up was scheduled and she was advised to call sooner with any questions or concerns. assessment MAGDALENA (generalized anxiety disorde r) Patient Care Teams Name Effective Dates (start - stop) Status Members No Information
--- OUTSIDE RECORDS SUMMARY | 2024-07-12 05:16 | XMS_ITS | Referral Summary ---
Author Organization [facility] Address [address] [place] [address] Care Team Providers Care Revenue Manager Name Role Phone Pcp, No Unavailable Unavailable Allergies No known active allergies Medications No known medications Immunizations Name Administration Dates Next Due Tdap Vaccine (7y+) 0.5 mL IM (Adacel, Boostrix)TDAP VACCINE AGE 7+ 12/03/2023 Social History Tobacco Use Types Packs/Day Years Used Date Smoking Tobacco: Never Assessed Comments Unknown Sex and Gender Information Value Date Recorded Sex Assigned at Not on file Legal Sex Female 5:53 PM EDT Gender Identity Not on file Sexual Orientation Not on file Last Filed Vital Signs Vital Sign Reading Time Taken Comments Blood Pressure 117/72 01/31/2024 6:06 PM EDT Pulse 119 01/31/2024 6:06 PM EDT Temperature 37.8 ??C (100 ??F) 01/31/2024 6:06 PM EDT Respiratory Rate 16 01/31/2024 6:06 PM EDT Oxygen Saturation 100% 01/31/2024 6:06 PM EDT Inhaled Oxygen Concentration 100% 01/31/2024 6 :06 PM EDT Weight - - Height - - Body Mass Index - - Plan of Treatment Not on file Care Teams Revenue Manager Relationship Specialty Start Date End Date Pcp, No PCP - Generic [facility] PCP 12/03/23
--- OUTSIDE RECORDS SUMMARY | 2024-07-12 05:16 | XMS_ITS | Clinical Summary ---
Author Organization [facility] Address [address] [place] [address] Care Team Providers Care Telephoto Engineer Name Role Phone Pcp, No Unavailable [...] Mass Index - - Plan of Treatment Health Maintenance Due Date Last Done Comments Chlamydia Screening 2003 Pediatric Cardiac Risk Screening 2006 Well Child Visit Annual 2006 Depression Screening 2015 Varicella Vaccines (1 of 2 - 13+ 2-dose series) 2016 HIV Screening with Documente d Verbal Consent 2018 HPV Vaccines (1 - 3-dose series) 2018 Hepatitis C Screening 2021 Hepatitis B Vaccines (1 of 3 - 19+ 3-dose series) 2022 COVID-19 Vaccine (1 - 2023-2 5 season) 2024 Influenza Vaccine (#1) 2024 Cervical Cancer Screening 2024 TDAP/TD Vaccine 18+ 12/02/2033 12/03/2023 Pneumococcal: Peds (0-5y) OR At-Risk Patient (6-64y) Aged Out No longer eligib kayla based on patient's age to complete this topic Care Teams Telephoto Engineer Relationship Specialty Start Date End Date Pcp, No PCP - Generic [facility] PCP 12/03/23
--- OUTSIDE RECORDS SUMMARY | 2024-07-12 05:16 | XMS_ITS | Encounter Summary ---
Author Organization [facility] Address [address] [place] [id number] Care Team Providers Care Property Manager Name Role Phone Pcp, No Unavailable Unavailable Reason for Visit * Reason Comments Abdominal Pain Encounter Details Date Type Department Care Team ([facility] st Contact Info) Description 01/31/2024 5:57 PM EDT - 01/31/2024 8:03 PM EDT Emergency [facility] Emergency Department [address] [place] [id number] Discharge Disposition: Left Without Being Seen Social History Tobacco Use Types Packs/Day Years [...] ED Notes * Mara Nielsen RN - 01/31/2024 6:02 PM EDT Pt to ED for left abdominal pain that wraps to pts back. Pt pain started last night Pt pain hurts when twisting. Pt denies dysuria. Pt LMP was end of december. Pt denies abdominal hx documented in this encounter Plan of Treatment Not on file documented as of this encounter Visit Diagnoses Not on filedocumented in this encounter Care Teams Property Manager Relationship Specialty Start Date End Date Pcp, No PCP - Generic [facility] PCP 12/03/23 documented as of this encounter
== END 2024-07-12 05:07 | disposition home or self-care (01) ==
LOC: ER 05:14
PROVIDERS: Emergency Provider Student in an Organized Health Care Education/Training Program
DX: R10.31 Right lower quadrant pain (principal); R11.2 Nausea with vomiting, unspecified; N10 Acute pyelonephritis; F17.200 Nicotine dependence, unspecified, uncomplicated
CPT/HCPCS: 80053; 81025; 87077; 99283; 81003; 81015; 85025; 87086; 87186

== ENCOUNTER 2024-09-19 10:49 | Emergency (ER) | payer OTHER, SELFPAY ==
[2024-09-19 10:55] VITALS: BP 110/73; PULSE 96; RESP 14; TEMP 36.4; O2SAT 99
[2024-09-19 11:24] LABS: Bilirubin Negative (Negative); Blood Negative (Negative); Clarity Sl Cloudy (Clear); Glucose 100 mg/dL (Negative); Ketones Trace mg/dL (Negative); Leukocyte Esterase Negative (Negative); Nitrite Negative (Negative); Specific Gravity >= 1.030 (1.005-1.025); Urobilinogen 0.2 mg/dL (Up to 0.2); pH 5.5 (5-8)
[2024-09-19 11:31] LABS: Bacteria Few HPF (Negative); C & S Indicated? No; Casts 0-2 Hyaline LPF (Negative); Crystals Negative HPF (Negative); Epithelial Cells Many HPF (Negative); Mucus Moderate (Negative); RBC Negative HPF (0-2); WBC Negative HPF (0-5)
--- NOTE | 2024-09-19 11:45 | DI.US_ITS ---
Exam(s) US PELVIS TRANSVAGINAL EXAM: US PELVIS TRANSVAGINAL CLINICAL HISTORY: Abdominal pain, IUD placement TECHNIQUE: Transabdominal and transvaginal imaging was performed using standard protocol. COMPARISON: No exams were available for comparison FINDINGS: The bladder is unremarkable. UTERUS: Anteverted. 6.3 x 4.2 x 5.4 cm Endometrium: 9 mm . IUD noted within endometrium. Myometrium: Unremarkable. Cervix: Unremarkable. OVARIES: Right: Right ovary not visualized, obscured by bowel gas. Left: Cyst or mass: None. DOPPLER: Color: Symmetric and uniform flow to both ovaries. No hyperemia. CUL-DE-SAC: Free fluid: Small amount of free fluid in cul-de-sac. IMPRESSION: 1. Normal-appearing uterus with endometrial stripe within normal limits. IUD in place. 2. Right ovary not visualized. Normal appearing left ovary. DATA REPOSITORY:
--- NOTE | 2024-09-19 11:54 | W.ED.GENAD ---
Discharge Plan Disposition Patient Disposition: Home Condition: Stable Discharge Details Clinical Impression: IUD check up, Abdominal pain Primary Care Provider: Katharina,Local ED Provider: Patricia Peace Home Meds and New Rx's Prescriptions: No Action ciprofloxacin HCl 500 mg tablet 500 mg PO BID Qty: 13 0RF Discharge Instructions Instructions: Intrauterine devices (IUDs), Abdominal Pain, Adult ED Additional Instructions: At this Time IUD is in place. No evidence of vaginal infection. You may still be having some cramping just from the IUD placement. This should subside this within the next couple weeks. If you do have a positive test for the swab for gonorrhea chlamydia we will call you. Follow up with [facility]/[employer]/primary care provider in 3-5 days. Return to ED sooner if any worsening or concerns. Please take Tylenol or Ibuprofen with food every 4-6 hours as needed for pain and swelling. Thank you for allowing us to care for you today. Referrals: [facility] [place] [place] [Provider Group] - 1 week HPI General Mode of arrival: ambulatory. Date/Time Provider Initiated Documentation: 09/19/24 11:18. Limitations to Documentation: no limitations. Information obtained by: patient, RN notes reviewed and old records reviewed. HPI Narrative: 19-year-old female presents to the ER with a chief complaint of lower abdominal cramping after having an IUD placed approximately a week and a half ago at [facility]. Patient reports that she was bleeding initially after the IUD placement but none now. She has had intercourse since the placement, she has had a IUD in the past. She reports increased abdominal cramping, foul-smelling discharge. She reports that she took ibuprofen with little to no relief. She is concerned for infection or misplacement of the IUD, she is able to feel the strings. Related Data Home Medications ?Medication ?Instructions ?Recorded ?Confirmed ciprofloxacin HCl 500 mg tablet 500 mg PO BID #13 tabs 07/12/24 Previous Rx's ?Medication ?Instructions ?Recorded ciprofloxacin HCl 500 mg tablet 500 mg PO BID #13 tabs 07/12/24 Allergies Allergy/AdvReac Type Severity Reaction Status Date / Time latex Allergy Unknown Verified 09/19/24 11:02 General Stated Complaint: [employer] FATUMA: 3 Review of Systems All systems reviewed & are unremarkable except as noted in HPI and below Gastrointestinal Gastrointestinal: Reports as per HPI and Reports abdominal pain Genitourinary Genitourinary: Reports vaginal discharge Exam GI Inspection: normal to inspection Palpation: soft Percussion: normal to percussion Auscultation: normal bowel sounds External Female Exam: normal external appearance Speculum Exam - Vagina: normal appearance of the vagina, foreign body (IUD strings visualized) and No vaginal bleeding Speculum Exam - Cervix: cervical os open and nontender Bimanual Exam- Vagina & Uterus: normal bimanual exam, No tender and soft Bimanual Exam- Adnexa, other: normal adnexae OB/External & Speculum: foreign body (IUD strings visualized), cervical os open, No vaginal bleeding and No vaginal discharge Course Vital Signs Vital signs: Vital Signs Temperature 36.4 C L 09/19/24 10:55 Pulse 96 H 09/19/24 10:55 Respiratory Rate 14 09/19/24 10:55 Blood Pressure 110/73 09/19/24 10:55 Pulse Oximetry 99 09/19/24 10:55 Temperature 36.4 C L 09/19/24 10:55 Temperature Source Temporal Artery Scan 09/19/24 10:55 Pulse 96 H 09/19/24 10:55 Respiratory Rate 14 09/19/24 10:55 Blood Pressure 110/73 09/19/24 10:55 Blood Pressure Position Sitting 09/19/24 10:55 Pulse Oximetry 99 09/19/24 10:55 Oxygen Delivery Method Room Air 09/19/24 10:55 Oxygen Flow Rate 0 09/19/24 10:55 Pain Level 7 09/19/24 10:55 Lab/Test Results Lab/Test Results: Laboratory Tests Range/Units 09/19/24 10:50 Urine Color (Yellow) Yellow Urine Clarity (Clear) Sl Cloudy Urine pH (5-8) 5.5 Ur Specific [place] (1.005-1.025) >= 1.030 H Urine Protein (Neg-Trace) mg/dL 30 H Urine Ketones (Negative) mg/dL Trace H Urine Blood (Negative) Negative Urine Nitrite (Negative) Negative Urine Bilirubin (Negative) Negative Urine Urobilinogen (Up to 0.2) mg/dL 0.2 Ur Leukocyte Esterase (Negative) Negative Urine RBC (0-2) HPF Negative Urine WBC (0-5) HPF Negative Ur Epithelial Cells (Negative) HPF Many Urine Crystals (Negative) HPF Negative Urine Bacteria (Negative) HPF Few Urine Casts (Negative) LPF 0-2 Hyaline Urine Mucus (Negative) Moderate Ur Culture Indicated? No Urine Glucose (Negative) mg/dL 100 H POC- Test(urine) Negative Medical Decision Making 19-year-old female presents to the ER with a chief complaint of lower abdominal cramping after having an IUD placed approximately a week and a half ago at [facility]. Patient reports that she was bleeding initially after the IUD placement but none now. She has had intercourse since the placement, she has had a IUD in the past. She reports increased abdominal cramping, foul-smelling discharge. She reports that she took ibuprofen with little to no relief. She is concerned for infection or misplacement of the IUD, she is able to feel the strings. Pelvic ultrasound ordered, will perform a pelvic exam get a GC chlamydia and vaginal pathogen screen. Differential diagnose includes not limited to infection, PID, UTI, displaced IUD. Urinalysis obtained in triage which shows trace ketones negative for leukocytes or nitrites culture not indicated at this time. Patient is requesting antiviral as she feels like she is getting a cold sore. Valcyclovir 1 g ordered p.o. Vaginal pathogen screen is negative for trichomonas, Anna or Gardnerella. Pelvic exam performed with Michaela RN as witness, patient tolerated well. Cervical os is slightly open, IUD strings visualized. No obviously abnormal lesions, bleeding or discharge. No cervical motion tenderness no adnexal tenderness with palpation. Awaiting ultrasound at this time. Imaging Data Radiologic Study: Imaging: Ultrasound Radiologist's impression: FINDINGS: The bladder is unremarkable. UTERUS: Anteverted. 6.3 x 4.2 x 5.4 cm Endometrium: 9 mm . IUD noted within endometrium. Myometrium: Unremarkable. Cervix: Unremarkable. OVARIES: Right: Right ovary not visualized, obscured by bowel gas. Left: Cyst or mass: None. DOPPLER: Color: Symmetric and uniform flow to both ovaries. No hyperemia. CUL-DE-SAC: Free fluid: Small amount of free fluid in cul-de-sac. IMPRESSION: 1. Normal-appearing uterus with endometrial stripe within normal limits. IUD in place. 2. Right ovary not visualized. Normal appearing left ovary. Lab Data Lab results reviewed: Yes I reviewed the patient's lab results. Labs: 09/19/24 13:05 Vaginal Vaginitis Screen - Final Laboratory Tests Range/Units 09/19/24 10:50 Urine Color (Yellow) Yellow Urine Clarity (Clear) Sl Cloudy Urine pH (5-8) 5.5 Ur Specific [place] (1.005-1.025) >= 1.030 H Urine Protein (Neg-Trace) mg/dL 30 H Urine Ketones (Negative) mg/dL Trace H Urine Blood (Negative) Negative Urine Nitrite (Negative) Negative Urine Bilirubin (Negative) Negative Urine Urobilinogen (Up to 0.2) mg/dL 0.2 Ur Leukocyte Esterase (Negative) Negative Urine RBC (0-2) HPF Negative Urine WBC (0-5) HPF Negative Ur Epithelial Cells (Negative) HPF Many Urine Crystals (Negative) HPF Negative Urine Bacteria (Negative) HPF Few Urine Casts (Negative) LPF 0-2 Hyaline Urine Mucus (Negative) Moderate Ur Culture Indicated? No Urine Glucose (Negative) mg/dL 100 H Quality:SDOH Health Related Social Needs: No Data to Display PFSH All Active Problems (Updated 09/19/24 @ 15:32 by Patricia Peace NP) Abdominal pain (Acute) IUD check up (Acute) Social History Smoking/Tobacco Use Status: Current every day Tobacco Type: e-cigarettes Smoking risk assessment performed?: Yes Alcohol Intake: current Alcohol Intake frequency: a few times a week Alcohol type: beer, wine and hard liquor Drug use: Never
[2024-09-19 15:36] VITALS: BP 120/70; PULSE 78; RESP 18; O2SAT 100
[2024-09-22 12:02] LABS: Chlamydia Result Negative (Negative); GC Result Negative (Negative)
== END 2024-09-19 15:55 | disposition home or self-care (01) ==
PROVIDERS: Emergency Provider Registered Nurse Emergency
DX: R10.9 Unspecified abdominal pain (principal); Z30.431 Encounter for routine checking of intrauterine contraceptive device
CPT/HCPCS: 81025; 87491; 87591; 99284; 76830; 76856; 81003; 81015; 87480; 87510; 87660; 99283